=== PATIENT | female | born 1980 | race Caucasian/White ===

== ENCOUNTER 2023-02-11 19:19 | Emergency (ER) | payer BC ==
[~2023-02-11] VITALS: Ht 160 cm; Wt 110.0 kg
--- NOTE | 2023-02-11 19:53 | ED General ---
General Chief Complaint: General Problems/Pain Stated Complaint: PANIC ATTACK|SHAKES Nursing Triage Note: Pt presents with c/o nausea, and feeling shaking after having a panic attack at home. Pt reports she's not felt well since friday when she took a higher does of her ozempic. Source of Information: Patient Exam Limitations: No Limitations (KARLOS SEE) History of Present Illness Date Seen by Provider: Feb 11, 2023 Time Seen by Provider: 19:50 Initial Comments Patient is a 42-year-old female who who presents to the ED for nausea, shaki ness, feeling warm sensation. This started about 20 minutes ago. She just got done eating. Started feeling warm, lightheaded and shaky. She felt like her heart was racing. Denies having similar type symptoms in the past. She does have a history of prediabetes. Increase her Ozempic this past Friday with the injection. Started not feeling well on Friday. She denies feeling anxious at this time. She denies of any specific chest pain. She feels like her heart is racing. She denies cough, shortness of breath, sore throat, ear pain or flulike symptoms. Denies history of anxiety. She is unsure if this is related to a panic attack versus adverse reaction to her Ozempic. Patient blood sugar on arrival 137. Last menstrual cycle a week and a half ago. Denies any dysuria, hematuria, increased urine frequency, vaginal bleeding, abdominal pain, visual changes, unilateral muscle weakness or sensory changes (KARLOS SEE) Allergies and Home Medications Patient Home Medication List Home Medication List Reviewed: Yes (KARLOS SEE) Review of Systems Review of Systems Constitutional: No chills, No diaphoresis, No fever, No malaise, No weakness EENTM: No ear pain, No blurred vision, No double vision, No vision loss, No dental problems, No hoarseness, No mouth pain, No mouth swelling, No throat pain Cardiovascular: No chest pain, No edema; palpitations Gastrointestinal: No abdominal pain, No constipation, No diarrhea, No vomiting Genitourinary: No decreased output, No discharge Musculoskeletal: No joint pain Skin: No change in color, No change in hair/nails (KARLOS SEE) All Other Systems Reviewed Negative Unless Noted: Yes (KARLOS SEE) Physical Exam Vital Signs Vital Signs - First Documented 02/11/23 02/11/23 02/11/23 19:33 19:50 21:18 Temp 36.4 Pulse 116 Resp 18 B/P (MAP) 108/78 (88) Pulse Ox 98 O2 Delivery Room Air (STUART GARZA MD) Vital Signs Capillary Refill : Less Than 3 Seconds (KARLOS SEE) Height, Weight, BMI Height: '" Weight: lbs. oz. kg; 42.00 BMI Method: General Appearance: No Apparent Distress, WD/WN Eyes: Bilateral Eye Normal Inspection, Bilateral Eye PERRL, Bilateral Eye EOMI HEENT: PERRL/EOMI, TMs Normal, Normal ENT Inspection, Pharynx Normal Neck: Full Range of Motion, Normal Inspection, Non Tender, Supple Respiratory: Chest Non Tender, Lungs Clear, Normal Breath Sounds, No Accessory Muscle Use, No Respiratory Distress Cardiovascular: Regular Rate, Rhythm, No Edema, No Gallop, No JVD, No Murmur Gastrointestinal: Normal Bowel Sounds, No Organomegaly, No Pulsatile Mass, Non Tender Back: Normal Inspection, No CVA Tenderness, No Vertebral Tenderness Neurologic/Psychiatric: Alert, Oriented x3, No Motor/Sensory Deficits, Normal Mood/Affect, bartenders II-XII Norm as Tested Skin: Normal Color, Warm/Dry (KARLOS SEE) Progress/Results/Core Measures Suspected Sepsis SIRS Temperature: Pulse: 116 Respiratory Rate: 18 Laboratory Tests 02/11/23 20:11: White Blood Count 12.1H Blood Pressure 108 /78 Mean: 88 Laboratory Tests 02/11/23 20:11: Creatinine 1.09, Platelet Count 278, Total Bilirubin 0.3 (KARLOS SEE) Results/Orders Lab Results Laboratory Tests Test 02/11/23 19:31 02/11/23 20:11 02/11/23 20:15 Range/Units Glucometer 137 H 70-110 MG/DL White Blood Count 12.1 H 4.3-11.0 10^3/uL Red Blood Count 5.07 3.80-5.11 10^6/uL Hemoglobin 12.8 11.5-16.0 g/dL Hematocrit 41 35-52 % Mean Corpuscular Volume 81 80-99 fL Mean Corpuscular Hemoglobin 25 25-34 pg Mean Corpuscular Hemoglobin Concent 31 L 32-36 g/dL Red Cell Distribution Width 16.2 H 10.0-14.5 % Platelet Count 278 130-400 10^3/uL Mean Platelet Volume 11.1 9.0-12.2 fL Immature Granulocyte % (Auto) 0 % Neutrophils (%) (Auto) 76 H 42-75 % Lymphocytes (%) (Auto) 15 12-44 % Monocytes (%) (Auto) 7 0-12 % Eosinophils (%) (Auto) 1 0-10 % Basophils (%) (Auto) 1 0-10 % Neutrophils # (Auto) 9.2 H 1.8-7.8 10^3/uL Lymphocytes # (Auto) 1.8 1.0-4.0 10^3/uL Monocytes # (Auto) 0.8 0.0-1.0 10^3/uL Eosinophils # (Auto) 0.2 0.0-0.3 10^3/uL Basophils # (Auto) 0.1 0.0-0.1 10^3/uL Immature Granulocyte # (Auto) 0.1 0.0-0.1 10^3/uL Sodium Level 138 135-145 MMOL/L Potassium Level 3.9 3.6-5.0 MMOL/L Chloride Level 107 98-107 MMOL/L Carbon Dioxide Level 22 21-32 MMOL/L Anion Gap 9 5-14 MMOL/L Blood Urea Nitrogen 14 7-18 MG/DL Creatinine 1.09 0.60-1.30 MG/DL Estimat Glomerular Filtration Rate 66 BUN/Creatinine Ratio 13 Glucose Level 140 H 70-105 MG/DL Calcium Level 9.4 8.5-10.1 MG/DL Corrected Calcium 9.6 8.5-10.1 MG/DL Total Bilirubin 0.3 0.1-1.0 MG/DL Aspartate Amino Transf (AST/SGOT) 20 5-34 U/L Alanine Aminotransferase (ALT/SGPT) 20 0-55 U/L Alkaline Phosphatase 83 40-136 U/L Total Protein 6.9 6.4-8.2 GM/DL Albumin 3.8 3.2-4.5 GM/DL Thyroid Stimulating Hormone (TSH) 2.76 0.35-4.94 UIU/ML Urine Color YELLOW Urine Clarity SL CLOUDY Urine pH 6.0 5-9 Urine Specific [place] >=1.030 1.016-1.022 Urine Protein NEGATIVE NEGATIVE Urine Glucose (UA) NEGATIVE NEGATIVE Urine Ketones NEGATIVE NEGATIVE Urine Nitrite NEGATIVE NEGATIVE Urine Bilirubin 1+ H NEGATIVE Urine Urobilinogen 0.2 < = 1.0 MG/DL Urine Leukocyte Esterase NEGATIVE NEGATIVE Urine RBC (Auto) TRACE-I H NEGATIVE Urine RBC 0-2 /HPF Urine WBC RARE /HPF Urine Squamous Epithelial Cells TNTC H /HPF Urine Crystals NONE /LPF Urine Bacteria LARGE H /HPF Urine Casts NONE /LPF Urine Mucus LARGE H /LPF Urine Culture Indicated NO Urine Test NEGATIVE NEGATIVE (STUART GARZA MD) Vital Signs/I&O 02/11/23 02/11/23 02/11/23 19:33 19:50 21:18 Temp 36.4 36.4 Pulse 116 84 Resp 18 16 B/P (MAP) 108/78 (88) 122/93 Pulse Ox 98 O2 Delivery Room Air Room Air (STUART GARZA MD) Vital Signs/I&O Capillary Refill : Less Than 3 Seconds (KARLOS SEE) Blood Pressure Mean: 88 Departure Communication (PCP) Patient presents to the ED for potential panic attack versus medication reaction. States she started not feeling well on Friday. Tonight after dinner she started having symptoms of a potential panic attack without the chest pain or shortness of breath. [place] heart palpitations. She felt warm dizzy lightheaded. Symptoms started improving before arrival. Increase Ozempic on Friday. Vital signs stable slightly tachycardic. No current chest pain or shortness of breath. CBC, CMP, TSH and urinalysis was ordered. Last menstrual cycle a week and a half ago. Urinalysis without strong evidence of infection. Squamous cells noted, red blood cell, bacteria. CBC shows slight elevated but white blood count of 12. Hemoglobin normal. Blood sugar 140. Patient was observed here for an hour and a half. Symptoms started improved. She refused any medication or symptoms. Did offer low-dose Ativan. TSH normal. Heart rate improved. Discussed with patient could be potential panic attack or reaction to increase medication. Due to improvement in symptoms recommend contacting her primary care physician discussed potentially decreasing her Ozempic as long as her blood sugar is well controlled. If continued symptoms with decreased medication may look for other etiologies. She denies history of anxiety. Denies history of similar type symptoms. No neurological red flag findings. No evidence suggesting cardiac. Return precaution were discussed. Follow-up with PCP in 2 to 3 days for reevaluation. (KARLOS SEE) Impression Primary Impression: Anxiousness Disposition: 01 HOME, SELF-CARE Condition: Stable Departure-Patient Inst. Decision time for Depature: 21:12 (KARLOS SEE) Referrals: NO,LOCAL PHYSICIAN (PCP) [facility] Physician [facility] [place] Patient Instructions: MEDICATION REACTION Add. Discharge Instructions: Recommend contacting your primary care physician to discuss potential changes in your Ozempic. If increased symptoms or worsening symptoms return back to ED. All discharge instructions reviewed with patient and/or family. Voiced understanding. ATTENDING PHYSICIAN NOTE: I was physically present as attending physician in the emergency department during the care of this patient, but I was not directly involved in the decision making or delivery of care for this patient. (STUART GARZA MD) KARLOS SEE Feb 11, 2023 19:52 STUART GARZA MD Feb 12, 2023 04:44
[2023-02-11 20:22] LABS: CLARITY,URINE SL CLOUDY; COLOR,URINE YELLOW; GLUCOSE, URINE (UA) NEGATIVE (NEGATIVE); KETONES,URINE NEGATIVE (NEGATIVE); LEUKOCYTE ESTERASE ,URINE NEGATIVE (NEGATIVE); NITRITE,URINE NEGATIVE (NEGATIVE); PROTEIN,URINE NEGATIVE (NEGATIVE)
[2023-02-11 20:22] LABS: BASOPHILS # (AUTO) 0.1 10^3/uL (0.0-0.1); BASOPHILS % (AUTO) 1 % (0-10); EOSINOPHILS # (AUTO) 0.2 10^3/uL (0.0-0.3); EOSINOPHILS % (AUTO) 1 % (0-10); HEMATOCRIT 41 % (35-52); HEMOGLOBIN 12.8 g/dL (11.5-16.0); LYMPHOCYTES # (AUTO) 1.8 10^3/uL (1.0-4.0); LYMPHOCYTES % (AUTO) 15 % (12-44); MEAN CORPUSCULAR HEMOGLOBIN 25 pg (25-34); MEAN CORPUSCULAR HGB CONC 31 g/dL (32-36); MEAN CORPUSCULAR VOLUME 81 fL (80-99); MEAN PLATELET VOLUME 11.1 fL (9.0-12.2); MONOCYTES # (AUTO) 0.8 10^3/uL (0.0-1.0); MONOCYTES % (AUTO) 7 % (0-12); NEUTROPHILS # (AUTO) 9.2 10^3/uL (1.8-7.8); NEUTROPHILS % (AUTO) 76 % (42-75); PLATELET COUNT 278 10^3/uL (130-400); WHITE BLOOD COUNT 12.1 10^3/uL (4.3-11.0)
[2023-02-11 20:38] LABS: BACTERIA,URINE LARGE /HPF; RBC,URINE 0-2 /HPF; SQUAMOUS EPITHELIAL CELL,UR TNTC /HPF; WBC,URINE RARE /HPF
[2023-02-11 20:40] LABS: BILIRUBIN,URINE 1+ (NEGATIVE)
[2023-02-11 20:49] LABS: ALBUMIN 3.8 GM/DL (3.2-4.5); BILIRUBIN,TOTAL 0.3 MG/DL (0.1-1.0); CALCIUM 9.4 MG/DL (8.5-10.1); CREATININE SERUM 1.09 MG/DL (0.60-1.30); POTASSIUM 3.9 MMOL/L (3.6-5.0); TOTAL PROTEIN 6.9 GM/DL (6.4-8.2)
[2023-02-11 21:18] VITALS: BP 122/93
== END 2023-02-11 21:18 | disposition home or self-care (01) ==
LOC: ER 19:22
DX: F41.9 Anxiety disorder, unspecified (principal); R73.03 Prediabetes; Z28.310 Unvaccinated for COVID-19
CPT/HCPCS: 36415; 80053; 81000; 82947; 84443; 84703; 85025